=== PATIENT | female | born 1975 | race Two or more races ===

== ENCOUNTER 2025-08-16 18:36 | Emergency (ER) | payer MEDICAID, SELFPAY ==
[2025-08-16 18:37] VITALS: BMI 28.3
--- NOTE | 2025-08-16 18:37 | PC.NURSE ---
pt brought in by ambulance with c/o posterior headache X 30 minutes today. Denies fall or injury, and states has not taken b/p med for few days.
[2025-08-16 18:40] VITALS: BP 160/92; PULSE 87; RESP 18; TEMP 36.6; O2SAT 96
--- NOTE | 2025-08-16 18:44 | XR_ITS ---
Examination: CT brain head without contrast. 2-D sagittal coronal reconstructions Date and time of exam: August 16, 2025, 1999 hours INDICATIONS: Severe headache and nausea today CTDI: vol (mGy): 47.40 DLP: (mGycm): 1106 Technique: Multiple CT axial sections of the brain have been obtained, 5 mm slice thickness. Contrast has not been administered. 2-D sagittal, coronal reconstructions have been obtained Low dose protocols were performed. One or more of the following dose reduction techniques were used; automated exposure control, adjustment of the mA and/or KV according to patient size, use of iterative reconstruction technique. Findings: No significant ventricular enlargement. Subarachnoid hemorrhage in the basal cisterns extending into the sylvian fissures and over the cerebral sulci Hemorrhage in the fourth ventricle No midline shift No effacement of the cortical sulcal markings Cranial vault intact IMPRESSION: Extensive subarachnoid hemorrhage as above Consider brain MRI MRA follow-up or CTA postcontrast brain follow-up to assess for cerebral aneurysm
--- NOTE | 2025-08-16 18:45 | XR_ITS ---
EXAMINATION: PA chest single view TECHNIQUE: Upright PA chest single view, hiccups today FINDINGS: Normal heart size Lungs are clear. The Uriel structures are intact IMPRESSION: No active disease
--- NOTE | 2025-08-16 18:46 | EKG_ITS ---
[facility] Test Date: 2025-08-16 Pat Name: LARA DISLA Department: Room: - Gender: Female Patient Transporter: : 1975 Requested By: Danette Huynh Order Number: [id number] Reading MD: Danette Huynh Measurements Intervals [place] Rate: 82 P: 42 KS: 167 QRS: 27 QRSD: 96 T: 49 QT: 386 QTc: 453 Interpretive Statements SINUS RHYTHM No previous ECG available for comparison /store/S0/[id number]/ecg/[id number].pdf
--- NOTE | 2025-08-16 18:46 | PD.EDHA ---
ED Headache RME/HPI General Chief Complaint: Headache Stated Complaint: HEADACHE Time Seen by Provider: 08/16/25 18:41 Arrival date/time: 08/16/25 18:36 50-year-old female patient with past medical history of hypertension forgot to take her blood pressure medication for 2 days, called EMS for sudden onset of severe headache while having a shower. Occipital in location described as pulsating, severity 10 out of 10. Patient denies any fall. Denies any slurring speech denies any other complaint except for multiple episode of hiccups before it happened headache. Patient is ambulatory. She is not taking any blood thinner. Related Data Previous Rx's ?Medication ?Instructions ?Recorded ibuprofen 600 mg tablet 600 mg PO Q6H #30 tabs 11/22/23 Allergies Allergy/AdvReac Type Severity Reaction Status Date / Time ibuprofen Allergy Unknown Verified 08/16/25 18:43 Review of Systems Review of Systems Narrative Review of Systems: Review of system reviewed and within normal limits except mentioned in HPI ED Exam Narrative Physical exam: VITAL SIGNS: Reviewed. GENERAL APPEARANCE: Alert and interactive, follows commands, no acute distress, alert and oriented x 3 HEAD AND FACE: Non-traumatic. ENT: PERRL, pink conjunctivitis, eyelid no trauma, Mucous membrane moist. NECK: Supple, nontender, no nuchal rigidity. CHEST: No tenderness, no crepitus, no paradoxical movement, no retractions. LUNGS: Clear, well ventilated, symmetric, no rales, no wheezing, no ronchi, no stridor, good breath sounds bilaterally. HEART: Regular rate, regular rhythm, no murmur, no gallops. ABDOMEN: Soft, positive bowel sounds, nondistended, no guarding, nontender, no rebound, no masses, RECTAL: Deferred. GENITAL: Deferred. NEUROLOGICAL: Gross motor function intact sensory function intact, Appropriate for age. MUSCULOSKELETAL: low back nontender, full range of motion. EXTREMITIES: Nontender, full range of motion. SKIN: Color pink, dry, no rash, no lacerations, no abrasions, no contusions. LYMPHATICS: Deferred. Course Quality Measures none Orders Category Date Time Status EKG (ED ONLY) *Do not use* NOW Care 08/16/25 18:[address] head/brain wo con Stat Exams 08/16/25 18:44 Completed EKG (ED Only) Stat Exams 08/16/25 18:46 Draft XR chest 1V Stat Exams 08/16/25 18:45 Completed CBC Stat Lab 08/16/25 19:06 Completed Comprehensive Metabolic Panel Stat Lab 08/16/25 19:06 Completed Partial Thromboplastin Time Stat Lab 08/16/25 19:06 Completed Urinalysis, C/S if Indicated Stat Lab 08/16/25 20:38 Completed Acetaminophen Tab [Tylenol ES Tab] Med 08/16/25 18:44 Discontinued 1,000 mg PO X1 ONE DiphenhydrAMINE [Benadryl] Med 08/16/25 18:44 Discontinued 50 mg PO X1 ONE Labetalol* IV [Trandate* IV] Med 08/16/25 21:26 Discontinued 10 mg IVP X1 ONE Metoclopramide [Reglan] Med 08/16/25 18:44 Discontinued 10 mg PO X1 ONE Ondansetron Inj [Zofran Inj] Med 08/16/25 21:26 Discontinued 4 mg IVP X1 ONE levETIRAcetam INJ [Keppra Inj] Med 08/16/25 21:19 Discontinued 1,000 mg IVP X1 ONE Vital Signs Vital signs: Vital Signs Temperature 97.8 F 08/16/25 18:40 Pulse Rate 87 08/16/25 18:40 Respiratory Rate 18 08/16/25 18:40 Blood Pressure 160/92 H 08/16/25 18:40 Pulse Oximetry (%) 96 08/16/25 18:40 Oxygen Delivery Method Room Air 08/16/25 18:40 Headache MDM Narrative MDM Narrative:: 50-year-old female patient with past medical history of hypertension forgot to take her blood pressure medication for 2 days, called EMS for sudden onset of severe headache while having a shower. Occipital in location described as pulsating, severity 10 out of 10. Patient denies any fall. Denies any slurring speech denies any other complaint except for multiple episode of hiccups before it happened headache. Patient is ambulatory. She is not taking any blood thinner. Patient's laboratory workup came back unremarkable except for a CT scan of the head which showed extensive subarachnoid hemorrhage in the basal cistern extending into the sylvian fissure and over the cerebral sulci. Hemorrhage in the fourth ventricular noted no midline shift noted. CT scan of the head came back at 2104 Patient was given initially Tylenol, Reglan, and Benadryl. While in the lobby. Patient was placed in the lobby, and patient received Keppra 1 g IV. Currently patient is still having headache, described as pulsating severity moderate. Patient was given Zofran also for vomiting. Plan of care discussed with the patient, and patient is to be transferred for higher level of care. Patient's latest blood pressure was noted to be 138/76, pulse of 96. I spoke with transfer center from [facility] at 9:45 PM, and the neurosurgeon Dr. RUSSO told us that patient needs to be transferred to higher level care patient needs cerebral angiogram Charge nurse is aware we are trying to transfer somewhere else. Patient was accepted in [facility], accepting doctor Dr. Linder/Dr. Grant Patient family was informed about the hospital accepting the patient. They agree for transfer. Patient data External records reviewed:: None Clinical information provided by:: patient and family Social determinants that could affect healthcare access:: none Patient has the following chronic illnesses:: Hypertension poor medication compliance How is presenting disease/condition affected by chronic disease/condition?: exacerbated by Evaluation data The following diagnostics were reviewed and interpreted by me:: lab results, radiology exam(s) and EKG tracing(s) Lab and/or radiology exams considered but not ordered:: None Interpretation Summary: EKG shows normal sinus rhythm, ventricular rate of 82 bpm, no ST segment elevation depression noted. Medications / Prescriptions Medications or Prescriptions considered but not ordered:: None Medication administrations:: Medication Administration History Discontinued Medications Acetaminophen (Acetaminophen 500 Mg Tablet) 1,000 mg PO X1 ONE Stop: 08/16/25 18:45 Last Admin: 08/16/25 19:27 Dose: 1,000 mg Documented By: JOSEFA Diphenhydramine HCl (Diphenhydramine 25 Mg Capsule) 50 mg PO X1 ONE Stop: 08/16/25 18:45 Last Admin: 08/16/25 19:27 Dose: 50 mg Documented By: JOSEFA Labetalol HCl (Labetalol Inj 5 Mg/Ml Vial 4 Ml) 10 mg IVP X1 ONE Stop: 08/16/25 21:27 Last Admin: 08/16/25 22:00 Dose: Not Given Documented By: MAYE Non-Admin Reason: Change of Condition Levetiracetam (Levetiracetam Inj 100 Mg/Ml Vial 5ml) 1,000 mg IVP X1 ONE Stop: 08/16/25 21:20 Last Admin: 08/16/25 21:59 Dose: 1,000 mg Documented By: MAYE Metoclopramide HCl (Metoclopramide 5 Mg Tablet) 10 mg PO X1 ONE Stop: 08/16/25 18:45 Last Admin: 08/16/25 19:28 Dose: 10 mg Documented By: JOSEFA Ondansetron HCl (Ondansetron Inj 2 Mg/Ml Inj 2 Ml) 4 mg IVP X1 ONE; Protocol Stop: 08/16/25 21:27 Last Admin: 08/16/25 21:57 Dose: 4 mg Documented By: MAYE Tylenol Benadryl and Reglan Kepp and Zodanny Consultations Consultation(s) initiated? (list below): No Diagnosis Differential diagnosis headache: migraine, subarachnoid hemorrhage and headache Most likely diagnosis given after review of the tests above:: Subarachnoid hemorrhage Admission Indicated Admission indicated?: indicated Explain why admission is indicated or not indicated:: Patient is to be transferred Admission Request Was there a request for admission?: No Disposition Plan Disposition Plan: Transfer Discharge Plan Plan Patient Disposition: [facility] Facility Pt Being Transferred to: [facility] Service Needed for Transfer: Neurosurgery Prescriptions/Referrals Prescriptions/Med Rec: No Action ibuprofen 600 mg tablet 600 mg PO Q6H Qty: 30 0RF Referrals: No Primary/Family,Physician [Primary Care Provider] - In 1 week Problem List Clinical Impression: Subarachnoid hemorrhage Patient/Caregiver Discharge Instructions Print Language: Yakut Stand Alone Forms: Jeanie Award Info., Patient Portal Info Letter
[2025-08-16] MEDS: ACETAMINOPHEN 500 MG TABLET 1000 MG PO (19:27)
[2025-08-16] MEDS: METOCLOPRAMIDE 5 MG TABLET 10 MG PO (19:28)
[2025-08-16 19:29] LABS: Basophils # (Auto) 0.0 Thou/mm3 (0.0-0.2); Basophils % (Auto) 0 % (0-2.5); Eosinophils # (Auto) 0.2 Thou/mm3 (0.0-0.5); Eosinophils % (Auto) 3 % (0-10); Hematocrit 40.0 % (36.0-46.0); Hemoglobin 14.0 g/dL (12.0-16.0); Immature Granulocytes Auto 0.01 Thou/mm3 (0.00-0.00); Lymphocytes # (Auto) 3.4 Thou/mm3 (1.0-4.8); Lymphocytes % (Auto) 55 % (10-50); Mean Corpuscular HGB Conc 35.0 g/dl (31.0-37.0); Mean Corpuscular Hemoglobin 31.7 pg (25.0-35.0); Mean Corpuscular Volume 91 fL (80-100); Monocytes # (Auto) 0.4 Thou/mm3 (0.0-0.8); Monocytes % (Auto) 6 % (0-12); Neutrophils # (Auto) 2.2 Thou/mm3 (1.8-7.7); Neutrophils % (Auto) 36 % (37-80); Nucleated Red Blood Cell # 0.00 Thou/mm3 (0.00-0.00); Nucleated Red Blood Cell % 0 /100 WBC (0); Platelet Count 233 Thou/mm3 (140-440); RDW Standard Deviation 39.5 fL (36.4-46.3); Red Blood Count 4.42 Miln/mm3 (4.00-5.20); White Blood Count 6.2 Thou/mm3 (3.6-11.0)
[2025-08-16 19:44] LABS: Partial Thromboplastin Time 26.0 Seconds (22.0-36.0)
[2025-08-16 19:54] LABS: Alanine Aminotransferase 118 U/L (10-49); Albumin, Serum 4.5 gm/dL (3.5-5.0); Albumin/Globulin Ratio 1.5 (1.2-2.2); Alkaline Phosphatase 155 U/L (46-116); Anion Gap 11 (7-16); Aspartate Amino Transferase 43 U/L (0-34); BUN/Creatinine Ratio 16 Ratio (12-20); Bilirubin,Total 0.4 mg/dL (0.3-1.2); Blood Urea Nitrogen 11 mg/dL (9-23); Calcium 9.7 mg/dL (8.3-10.6); Calcium (Corrected) 9.7 mg/dL (8.5-10.1); Carbon Dioxide 25.8 mMol/L (20.0-31.0); Chloride 100 mMol/L (98-107); Creatinine (Component) 0.7 mg/dL (0.6-1.3); Estimated Creatinine Clearance 83.9 mL/min (>60); Globulin 3.1 gm/dL (2.3-3.5); Glucose 305 mg/dL (74-106); Osmolality,Calculated 284 (275-295); Potassium 3.7 mMol/L (3.4-5.1); Sodium 137 mMol/L (136-145); Total Protein 7.6 gm/dL (5.7-8.2); eGFR > 60 See Note
[2025-08-16 20:57] LABS: Collection Type, Urine Clean Catch; Squamous Epithelial Cell,Urine 0 /hpf (0-5)
[2025-08-16 21:10] LABS: Bilirubin,Urine Negative (Negative); Blood,Urine Negative (Negative); Clarity,Urine Clear (Clear/Hazy); Color,Urine Lt-Yellow (Lt Yel-Yel); Culture Indicated,Urine Not Indicated; Glucose, Urine 4+ (Negative); Ketones,Urine Negative (Negative); Leukocyte Esterase,Urine Negative (Negative); Nitrite,Urine Negative (Negative); PH,Urine 7.0 (5.0-7.0); Protein,Urine Negative (Neg - Trace); RBC,Urine 3 /hpf (0-3); Specific Gravity,Urine 1.034 (1.001-1.035); Urobilinogen,Urine Negative mg/dL (0.0-1.0); WBC,Urine < 1 /hpf (0-5)
[2025-08-16 21:37] VITALS: BP 138/76; PULSE 96; RESP 20; TEMP 37.1; O2SAT 100
[2025-08-16] MEDS: ONDANSETRON INJ 2 MG/ML INJ 2 ML 4 MG IVP (21:57)
[2025-08-16] MEDS: levETIRAcetam INJ 100 MG/ML VIAL 5ML 1000 MG IVP (21:59)
[2025-08-16 22:36] VITALS: BP 118/68; PULSE 82; RESP 20; TEMP 37.1; O2SAT 100
--- NOTE | 2025-08-16 22:36 | PRELIM_ITS ---
CT scan of the head without intravenous contrast (axial sections with sagittal and coronal reformats). August 16, 2025 at 20:00 hours Clinical History: Severe headache. Comparison: No prior study is available for comparison. Findings: There are acute subarachnoid hemorrhages in the right frontal, left frontoparietal sulci, bilateral Sylvian fissures, and basal cisterns. Intraventricular hemorrhage is seen in the fourth ventricle (axial image 31/44). There is diffuse effacement of the sulci, likely representing changes of cerebral edema. No evidence of midline shift. There are focal calcifications in the bilateral right fronto-temporal lobes, likely representing old calcified granulomas. The calvarium is unremarkable. There is moderate mucosal thickening in the left maxillary sinus. The mastoid air cells are clear. Impression: 1. Acute subarachnoid hemorrhages in the right frontal, left frontoparietal sulci, bilateral Sylvian fissures, and basal cisterns. 2. Intraventricular hemorrhage in the fourth ventricle. 3. Findings suggestive of diffuse cerebral edema. 4. No evidence of midline shift. Discussion Details: Results verbally communicated to : Dr. Kaiser at 10:20 PM 08/16/2025 Report Electronically Signed By: Cl Saenz 08/16/2025 10:35:53 PM [EST]
--- NOTE | 2025-08-16 22:46 | PC.NURSE ---
ALANNA to Toni CALIX at [facility]
== END 2025-08-16 23:04 | disposition short-term general hospital (02) ==
PROVIDERS: Nurse Practitioner Family; Emergency Provider Emergency Medicine
DX: I60.9 Nontraumatic subarachnoid hemorrhage, unspecified (principal); I10 Essential (primary) hypertension
CPT/HCPCS: 36415; 70450; 71045; 80053; 81001; 85025; 85730; 93005; 96374; 96375; 99284; J1953; J2405; A9270